=== PATIENT | male | born 1995 | race Caucasian/White ===

== ENCOUNTER 2019-05-20 00:26 | Emergency (ER) | payer OTHER ==
[~2019-05-20] VITALS: Ht 188 cm; Wt 88.6 kg
[2019-05-20] MEDS ORDERED: ROBA750T4 PO (01:33)
[2019-05-20] MEDS ORDERED: NAPR-837 PO (01:33)
[2019-05-20] MEDS ORDERED: methocarbamoL 750 MG TAB PO ONE (01:45)
[2019-05-20] MEDS ORDERED: NAPROXEN 250 MG TAB PO ONE (01:45)
[2019-05-20 01:50] VITALS: BP 142/75
== END 2019-05-20 01:51 | disposition home or self-care (01) ==
LOC: M ED 00:26
DX: M54.41 Lumbago with sciatica, right side (principal)